=== PATIENT | female | born 1950 ===

== ENCOUNTER 2017-03-10 08:36 | Emergency (ER) | payer OTHER ==
[~2017-03-10] VITALS: Ht 149.9 cm; Wt 49.4 kg
[~2017-03-10 08:36] MED LIST: AVELOX ABC PAC400 MG; CATAFLAM50 MG PO; DECADRON P4 MG/ML-1M; Flagyl PO; INTESTINEX680 MG PO; LEVSIN/SL0.125 MG SL; LOSARTAN POTASS50 MG; ORPH100T PO; PEPCID40 MG PO; Rocephin 2000 mg vial IV; ULTRAM50 MG PO; ZOFRAN8 MG PO
[2017-03-10] MEDS ORDERED: NEURONTIN300 MG (08:45)
[2017-03-10] MEDS ORDERED: [UNRECOGNIZED DRUG - OTHER] (08:46)
== END 2017-03-10 19:08 | disposition home or self-care (01) ==
LOC: ER 08:36
DX: K29.70 Gastritis, unspecified, without bleeding (principal)

== ENCOUNTER 2017-06-17 22:48 | Emergency (ER) | payer OTHER ==
[~2017-06-17] VITALS: Ht 149.9 cm; Wt 49.9 kg
[~2017-06-17 22:48] MED LIST changes: +NEURONTIN300 MG; +[UNRECOGNIZED DRUG - OTHER]
[2017-06-17] MEDS ORDERED: DEXAMETHASONE4 MG (23:18)
[2017-06-17] MEDS ORDERED: REVLIMID25 MG (23:18)
== END 2017-06-18 09:15 | disposition home or self-care (01) ==
LOC: ER 22:48
DX: K29.70 Gastritis, unspecified, without bleeding (principal)

== ENCOUNTER 2017-08-10 07:52 | Outpatient (CLI) | payer OTHER ==
[~2017-08-10 07:52] MED LIST changes: +DEXAMETHASONE4 MG; +REVLIMID25 MG
== END 2017-08-10 08:19 | disposition home or self-care (01) ==
LOC: MAMO-SONO 07:52
DX: Z12.31 Encounter for screening mammogram for malignant neoplasm of breast (principal)

== ENCOUNTER → 2017-12-30 | Emergency (ER) | payer OTHER ==
[~2017-12-30] VITALS: Ht 149.9 cm; Wt 59.0 kg
== END | disposition left against medical advice (07) ==
LOC: ER 23:41
DX: Z53.20 Procedure and treatment not carried out because of patient's decision for unspecified reasons (principal)

== ENCOUNTER 2018-01-24 10:44 | Outpatient (CLI) | payer OTHER | END 2018-01-24 10:46 | disposition home or self-care (01) | LOC: SONOGRAMA 10:44 | DX: N95.0 Postmenopausal bleeding (principal); C90.00 Multiple myeloma not having achieved remission ==

== ENCOUNTER 2018-03-12 12:19 | Emergency (ER) | payer OTHER ==
[~2018-03-12] VITALS: Ht 149.9 cm; Wt 63.5 kg
[2018-03-12] MEDS ORDERED: COZAAR50 MG (12:39)
[2018-03-12] MEDS ORDERED: [UNRECOGNIZED DRUG - OTHER] (12:39)
[2018-03-12] MEDS ORDERED: [UNRECOGNIZED DRUG - OTHER] (12:40)
[2018-03-12] MEDS ORDERED: ATENOLOL25 MG (12:40)
[2018-03-12] MEDS ORDERED: MEDROLPACK PO (16:08)
[2018-03-12] MEDS ORDERED: NORFLEX100MG PO (16:08)
== END 2018-03-12 16:18 | disposition home or self-care (01) ==
LOC: ER 12:19
DX: M54.5 Low back pain (principal)

== ENCOUNTER 2018-03-20 12:12 | Emergency (ER) | payer OTHER ==
[~2018-03-20] VITALS: Ht 149.9 cm; Wt 62.6 kg
[~2018-03-20 12:12] MED LIST changes: +ATENOLOL25 MG; +COZAAR50 MG; +MEDROLPACK PO; +NORFLEX100MG PO; +[UNRECOGNIZED DRUG - OTHER]; +[UNRECOGNIZED DRUG - OTHER]
== END 2018-03-20 13:19 | disposition home or self-care (01) ==
LOC: ER 12:12
DX: M54.5 Low back pain (principal)

== ENCOUNTER 2018-03-25 11:38 | Emergency (ER) | payer OTHER ==
[~2018-03-25] VITALS: Ht 149.9 cm; Wt 63.5 kg
== END 2018-03-25 13:46 | disposition home or self-care (01) ==
LOC: ER 11:38
DX: M54.5 Low back pain (principal)

== ENCOUNTER → 2019-01-25 | Emergency (ER) | payer OTHER ==
[~2019-01-25] VITALS: Ht 149.9 cm; Wt 68.0 kg
[~2019-01-25] MED LIST changes: +DECADRON4 MG; +NORFLEX100MG; +ZOLOFT100 MG
== END | disposition home or self-care (01) ==
LOC: ER 16:43
DX: S90.31XA Contusion of right foot, initial encounter (principal); W18.39XA Other fall on same level, initial encounter; Y93.89 Activity, other specified; Y92.89 Other specified places as the place of occurrence of the external cause; Y99.8 Other external cause status

== ENCOUNTER 2019-04-02 21:16 | Emergency (ER) | payer OTHER ==
[~2019-04-02] VITALS: Ht 154.9 cm; Wt 61.2 kg
[2019-04-02] MEDS ORDERED: LEVSIN0.125 MG (21:38)
[2019-04-02] MEDS ORDERED: ASPERCREME1 EACH (21:38)
[2019-04-02] MEDS ORDERED: AMITRIPTYLINE HC5 GM (21:39)
[2019-04-03] MEDS ORDERED: OSEL75CA PO (04:56)
[2019-04-03] MEDS ORDERED: ZYNCOF 20-400120 ML PO ×2 (04:58→04:59)
== END 2019-04-03 04:39 | disposition home or self-care (01) ==
LOC: ER 21:16
DX: J11.1 Influenza due to unidentified influenza virus with other respiratory manifestations (principal)

== ENCOUNTER 2020-03-22 09:49 | Inpatient (IN) | payer OTHER ==
[~2020-03-22] VITALS: Ht 121.9 cm; Wt 5.0 kg
[~2020-03-22 09:49] MED LIST changes: +AMITRIPTYLINE HC5 GM; +ASPERCREME1 EACH; +CELEBREX200MG PO; +LEVSIN0.125 MG; +OSEL75CA PO; +ZYNCOF 20-400120 ML PO
[2020-03-22] MEDS ORDERED: HYDRALAZINE HCL25 MG PO (09:58)
[2020-03-22] MEDS ORDERED: ALENDRONATE SOD70 MG PO (09:58)
[2020-03-22] MEDS ORDERED: DEXAMETHASONE4 MG PO (09:58)
[2020-03-22] MEDS ORDERED: GABAPENTIN400 MG PO (09:59)
== END 2020-04-02 17:16 | disposition home or self-care (01) | DRG 439 ==
LOC: ER 09:49 → SEC-K 15:36 → MEDJ 15:36
PROVIDERS: ADMIT Internal Medicine; ATTEND Internal Medicine
PROC: 8E0ZXY6 Isolation (ICD-10-PCS; principal; 2020-03-22)
PROC: BW21YZZ Computerized Tomography (CT Scan) of Abdomen and Pelvis using Other Contrast (ICD-10-PCS; 2020-03-22)
DX: K85.90 Acute pancreatitis without necrosis or infection, unspecified (principal); C90.00 Multiple myeloma not having achieved remission; D84.81 Immunodeficiency due to conditions classified elsewhere; N39.0 Urinary tract infection, site not specified; I10 Essential (primary) hypertension; K74.60 Unspecified cirrhosis of liver; E86.0 Dehydration; E87.6 Hypokalemia; B96.29 Other Escherichia coli [E. coli] as the cause of diseases classified elsewhere; D69.59 Other secondary thrombocytopenia

== ENCOUNTER 2020-05-14 11:54 | Inpatient (IN) | payer OTHER ==
[~2020-05-14] VITALS: Ht 149.9 cm; Wt 72.6 kg
[~2020-05-14 11:54] MED LIST changes: +ALENDRONATE SOD70 MG PO; +DEXAMETHASONE4 MG PO; +GABAPENTIN400 MG PO; +HYDRALAZINE HCL25 MG PO
[2020-05-18] MEDS ORDERED: DEXAMETHASONE4 MG (09:20)
[2020-05-18] MEDS ORDERED: LIDOCAINE1 EACH (09:20)
[2020-05-18] MEDS ORDERED: TRAMADOL HCL50 MG (09:20)
[2020-05-18] MEDS ORDERED: PANTOPRAZOLE SO40 MG (09:21)
[2020-05-22] MEDS ORDERED: DICY20TA PO (09:24)
[2020-05-22] MEDS ORDERED: HYDRALAZINE HCL25 MG PO (09:25)
[2020-05-22] MEDS ORDERED: CYMBALTA30 MG PO (09:25)
[2020-05-22] MEDS ORDERED: GABAPENTIN400 MG PO (09:26)
[2020-05-22] MEDS ORDERED: TRAMADOL HCL50 MG PO (09:27)
[2020-05-22] MEDS ORDERED: B Complex CAPSULE PO (09:28)
[2020-05-22] MEDS ORDERED: INTESTINEX680 M1 PO (09:28)
[2020-06-05] MEDS ORDERED: CICLOPIROX15 GM (17:40)
== END 2020-05-22 16:41 | disposition home or self-care (01) | DRG 841 ==
LOC: ER 11:54 → SEC-K 21:30 → SURH 21:30
PROVIDERS: ADMIT Internal Medicine Hematology & Oncology; ATTEND Internal Medicine Hematology & Oncology
PROC: 8E0ZXY6 Isolation (ICD-10-PCS; 2020-05-15)
PROC: 02HV33Z Insertion of Infusion Device into Superior Vena Cava, Percutaneous Approach (ICD-10-PCS; principal; 2020-05-16)
PROC: 3E083GC Introduction of Other Therapeutic Substance into Heart, Percutaneous Approach (ICD-10-PCS; 2020-05-16)
DX: C90.00 Multiple myeloma not having achieved remission (principal); D84.9 Immunodeficiency, unspecified; N39.0 Urinary tract infection, site not specified; A04.72 Enterocolitis due to Clostridium difficile, not specified as recurrent; D61.818 Other pancytopenia; D63.0 Anemia in neoplastic disease; B96.20 Unspecified Escherichia coli [E. coli] as the cause of diseases classified elsewhere; K52.9 Noninfective gastroenteritis and colitis, unspecified; E86.0 Dehydration; E87.6 Hypokalemia; D69.59 Other secondary thrombocytopenia; G89.3 Neoplasm related pain (acute) (chronic); R53.81 Other malaise; F43.21 Adjustment disorder with depressed mood; I10 Essential (primary) hypertension

== ENCOUNTER → 2020-06-05 | Emergency (ER) | payer OTHER ==
[~2020-06-05] VITALS: Ht 149.9 cm; Wt 72.6 kg
[~2020-06-05] MED LIST changes: +B Complex CAPSULE PO; +CICLOPIROX15 GM; +CYMBALTA30 MG PO; +DICY20TA PO; +INTESTINEX680 M1 PO; +LIDOCAINE1 EACH; +PANTOPRAZOLE SO40 MG; +TRAMADOL HCL50 MG; +TRAMADOL HCL50 MG PO
== END | disposition left against medical advice (07) ==
LOC: ER 16:34
DX: Z53.20 Procedure and treatment not carried out because of patient's decision for unspecified reasons (principal)

== ENCOUNTER 2020-06-06 07:30 | Emergency (ER) | payer OTHER ==
[~2020-06-06] VITALS: Ht 157.5 cm; Wt 72.6 kg
== END 2020-06-06 16:18 | disposition home or self-care (01) ==
LOC: ER 07:30
DX: I80.8 Phlebitis and thrombophlebitis of other sites (principal); M79.602 Pain in left arm; C90.00 Multiple myeloma not having achieved remission

== ENCOUNTER 2020-09-23 20:18 | Inpatient (IN) | payer OTHER ==
[~2020-09-23] VITALS: Ht 149.9 cm; Wt 72.6 kg
--- NOTE | 2020-09-23 20:35 | NUR ---
PTE ALERTA YORIENTADA X3 ACOMPANADA EN AMBULANCIA. FAMILIAR REFIERE QUE LA PTE A ESTADO DURMIENDO POR MUCHO TIEMPO EN DOS RIZVI SEGUIDOS.
--- NOTE | 2020-09-23 21:49 | NUR ---
SE LE ORIENTA A PTE Y FAMILIAR SOBRE TRATAMIENTO A SEGUIR, AMBOS REFIEREN ENTENDER. SE LE COLECTA MUESTRAS, SE CANALIZA Y SE ADMINISTRA MEDICAMENTO [place] ORDEN MEDICA UTILIZANDO MEDIDAS ASEPTICAS. PENDIENTE CT.
[2020-09-30] MEDS ORDERED: CYMBALTA30 MG PO (08:27)
[2020-09-30] MEDS ORDERED: SERTRALINE HCL50 MG PO (08:27)
[2020-09-30] MEDS ORDERED: GABAPENTIN300 MG PO (08:27)
[2020-09-30] MEDS ORDERED: INTESTINEX680 M1 PO (08:28)
[2020-09-30] MEDS ORDERED: [UNRECOGNIZED DRUG - REMARK] TOP (08:31)
== END 2020-09-30 16:57 | disposition home or self-care (01) | DRG 442 ==
LOC: ER 20:18 → MEDJ 09-24 09:18 → SEC-K 09-24 09:18 → MEDJ 09-24 12:26
PROVIDERS: ADMIT Internal Medicine Hematology & Oncology; ATTEND Internal Medicine Hematology & Oncology
PROC: B020ZZZ Computerized Tomography (CT Scan) of Brain (ICD-10-PCS; 2020-09-23)
PROC: BW40ZZZ Ultrasonography of Abdomen (ICD-10-PCS; 2020-09-24)
PROC: 02HV33Z Insertion of Infusion Device into Superior Vena Cava, Percutaneous Approach (ICD-10-PCS; principal; 2020-09-26)
PROC: 30233N1 Transfusion of Nonautologous Red Blood Cells into Peripheral Vein, Percutaneous Approach (ICD-10-PCS; 2020-09-29)
DX: K72.00 Acute and subacute hepatic failure without coma (principal); C90.00 Multiple myeloma not having achieved remission; D61.818 Other pancytopenia; D84.81 Immunodeficiency due to conditions classified elsewhere; F11.20 Opioid dependence, uncomplicated; D63.0 Anemia in neoplastic disease; D64.9 Anemia, unspecified; D69.59 Other secondary thrombocytopenia; E86.0 Dehydration; K72.10 Chronic hepatic failure without coma; I10 Essential (primary) hypertension; G89.3 Neoplasm related pain (acute) (chronic); G57.83 Other specified mononeuropathies of bilateral lower limbs; F03.90 Unspecified dementia, unspecified severity, without behavioral disturbance, psychotic disturbance, mood disturbance, and anxiety; F43.21 Adjustment disorder with depressed mood; Z66 Do not resuscitate; Z74.01 Bed confinement status; Z20.822 Contact with and (suspected) exposure to COVID-19